=== PATIENT | male | born 1985 ===

== ENCOUNTER 2019-04-21 13:33 | Emergency (ER) | payer SELFPAY ==
--- NOTE | 2019-04-21 14:00 | Event Note ---
ED Screening Note ED Screening Note: pt came via EMS co foot pain NAD Well known to us Left the building- this is not per staff report his first time doing so. This initial assessment/diagnostic orders/clinical plan/treatment(s) is/are subject to change based on patients health status, clinical progression and re- assessment by fellow clinical providers in the ED. Further treatment and workup at subsequent clinical providers discretion. Patient/guardian urged not to elope from the ED as their condition may be serious if not clinically assessed and managed. Initial orders include:
== END 2019-04-21 14:46 | disposition left against medical advice (07) ==
LOC: ED 13:33
DX: M79.673 Pain in unspecified foot (principal); Z53.21 Procedure and treatment not carried out due to patient leaving prior to being seen by health care provider